=== PATIENT | female | born 1985 | race Caucasian/White ===

== ENCOUNTER 2022-05-08 13:47 | Outpatient (CLI) | payer OTHER, SELFPAY ==
--- NOTE | 2022-05-08 14:00 | CRLHL7_ITS ---
For Patients: As a result of the Century Cures Act, medical imaging exams and procedure reports are released immediately into your electronic medical record. You may view this report before your referring provider. If you have questions, please contact your health care provider. INDICATION: Dating and viability. LMP 03/03/2022. COMPARISON: None. TECHNIQUE: Real-time thakkar-scale imaging of the pelvis was performed. FINDINGS: Sonographic imaging demonstrates a single living intrauterine gestation. The embryo has a regular cardiac rate measuring 169 beats per minute. The embryo`s crown-rump length measurement of 2.9 cm corresponds to a gestational age of 9 weeks 5 days with a sonographic due date of 12/06/2022. There is a normal-appearing yolk sac. The placenta has not yet developed. There is a small subchorionic hemorrhage along the right superior aspect of the gestational sac measuring 1.2 x 0.3 x 1.5 cm. The cervix appears closed. The right ovary measures 4.1 x 1.9 x 2.2 cm and the left ovary measures 2.2 x 1.7 x 1.5 cm. There is a 2.0 cm cyst in the right ovary and a 2.2 cm right paraovarian cyst. Thick-walled cyst in the left ovary likely represents a corpus luteum. Trace amount of free fluid in the right adnexa. IMPRESSION: 1. Single living intrauterine gestation with crown rump length 2.9 cm which corresponds to a gestational age of 9 weeks 5 days with a sonographic due date of 12/06/2022. 2. The clinical gestational age by LMP is 9 weeks 3 days. 3. Small subchorionic hemorrhage. 4. Two simple cysts in the right ovary and a corpus luteum in the left ovary. Trace free fluid in the right adnexa. Dictated by Lolly Franklin MD @ 05/08/2022 6:14:07 PM (Electronically Signed)
[2022-05-08 17:28] LABS: Hepatitis B Surface Antigen* Negative (Negative)
[2022-05-08 17:37] LABS: HIV 1/2/P24 Combo Screen* Negative (Negative)
[2022-05-08 17:45] LABS: Hepatitis C Virus Antibody* Negative (Negative)
[2022-05-10 10:14] LABS: Rapid Plasma Reagin (RPR) Non Reactive (Non Reactive)
[2022-05-10 16:21] LABS: Rubella Antibody IgG 7.2 IU/mL
== END 2022-05-08 13:48 | disposition home or self-care (01) ==
LOC: US 13:50
PROVIDERS: Visit Provider Physician Assistant
DX: Z34.91 Encounter for supervision of normal pregnancy, unspecified, first trimester (principal); O20.9 Hemorrhage in early pregnancy, unspecified; O34.81 Maternal care for other abnormalities of pelvic organs, first trimester; N83.291 Other ovarian cyst, right side; N83.12 Corpus luteum cyst of left ovary; Z3A.09 9 weeks gestation of pregnancy
CPT/HCPCS: 36415; 76817; 86592; 86703; 86762; 86803; 86850; 86900; 86901; 87086; 87340; 87491; 87591

== ENCOUNTER 2022-06-25 14:48 | Emergency (ER) | payer OTHER, SELFPAY ==
[2022-06-25] VITALS (10 sets, daily range): BP systolic 102–132; BP diastolic 46–73; PULSE 60–75; TEMP 36.3; O2SAT 96–100; BMI 30.9
--- OUTSIDE RECORDS SUMMARY | 2022-06-25 17:46 | XMS_ITS | Clinical Summary ---
:1985 Author Organization [facility] [place] [address] Care Team Providers Name Role Phone Pcp, No Primary Care Provider Unavailable Konstantin Barakat MD Unavailable Allergies No known active allergies Medications No known medications Active Problems Problem Noted Date Nonallopathic lesion of sacral region, not elsewhere c lassified 02/28/2013 Hip pain 02/28/2013 Knee pain 02/28/2013 Comments Yes Resolved Problems Problem Noted Date Resolved Date Hip pain 02/28/2013 02/28/2013 Nonallopathic lesion of sacral region, not elsewhere 012 02/28/2013 classified Nonallopathic lesion of thoracic region, not elsewhere 07/1802/28/2013 classified Somatic dysfunction of lumbar region 01/09/201205/2012 Spasm of muscle 01/09/2012 07/18/2012 Knee pain 01/09/2012 07/18/2012 Nonallopathic lesion of cervical region, not elsewhere 10/0301/09/2012 classified Pain in joint, shoulder region 10/03/2010 2 Nonallopathic lesion of lumbar region, not elsewhere 010 01/09/2012 classified Nonallopathic lesion of thoracic region, not elsewhere 02/1301/09/2012 classified Sprain of ribs 02/13/2010 01/09/2012 Knee pain 02/13/2010 01/09/2012 Encounters Date Type Specialty Care Team Description 06/19/2022 Nurse/Clinic Staff Only Immu nization/Injection (ALLERGY INJECT IONS ) 06/19/2022 Travel 05/29/2022 Travel 05/03/2022 Nurse/Clinic Staff Only Immu nization/Injection (ALLERGY SHOTS) 05/03/2022 Travel 04/30/2022 Telemedicine Gabriel Leblanc Allergies CARLA Hearn 04/30/2022 Telephone Gabriel Leblanc Appointment CARLA Hearn 04/30/2022 Travel 04/20/2022 Telephone Gabriel Leblanc Questions (Re : shots) CARLA Hearn from Last 3 Months Social History Tobacco Use Types Packs/Day Years Used Date Never Smoker Smokeless Tobacco: Never Used Alcohol Use Standard Drinks/Week Comments Not Asked 0 (1 standard drink = 0.6 oz pure alcoho l) Comments Yes Sex Assigned at Date Recorded Not on file Travel History Travel Start Travel End [place] 06/04/2022 06/07/2022 COVID-19 Exposure Response Date Recorded In the last 10 days, have you been in contact with No / Unsu re 06/19/2022 4:00 PM CDT someone who was confirmed or suspected to have Coronavirus/COVID-19? 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 Temperature - - Respiratory Rate - - Oxygen Saturation - - Inhaled Oxygen Concentration - - Weight 80.3 kg (177 lb) 02/27/2013 1:44 PM CDT Height 160.7 cm (5' 3.25) 02/27/2013 1:44 PM CDT Body Mass Index 31.11 02/27/2013 1:44 PM CDT Plan of Treatment Upcoming Encounters Date Type Specialty Care Team Description 06/26/2022 Nurse/Clinic Staff Only Health Maintenance Due Date Last Done Comments COVID-19 vaccine series (#1) 1984 Tdap 1995 Depression screening for age 12+ 1996 BMI (ht and wt on same day) for age 18+ 2002 Hepatitis C screening for age 18-79 2002 Tetanus booster 2004 Pap test for age 21-65 2005 Influenza for age 9-49 05/10/2022 Results Not on filefrom Last 3 Months Insurance Payer Benefit Plan / Subscriber ID Effective Dates Phone Addre ss Type Group [facility] [id number] 2022-Present Claudette OLS[address] [id number] [place] [address] Care Teams Sybase Developer Relationship Specialty Start Date End Date Pcp, No PCP - General 01/07/12 . Konstantin Barakat MD Allergy and Immunology 06/20/22 [address] [place] [address]
[2022-06-25 17:48] LABS: Basophils Absolute Auto 0.06 K/uL (0.00-0.30); Basophils Percent Auto 0.6 % (0.0-3.0); Eosinophils Absolute Auto 0.54 K/uL (0.00-0.50); Eosinophils Percent Auto 5.5 % (0.0-7.0); Hematocrit 38.8 % (33.0-51.0); Hemoglobin* 13.9 gm/dL (12.0-16.0); Immature Granulocytes Abs Auto 0.04 K/uL (0.00-0.30); Lymphocytes Absolute Auto 2.65 K/uL (0.90-2.90); Lymphocytes Percent Auto 26.8 % (20-44); Mean Corpuscular HGB Conc 36 gm/dL (32-36); Mean Corpuscular Hemoglobin 32 pg (26-34); Mean Corpuscular Volume 90 fL (80-100); Monocytes Percent Auto 6.9 % (0.0-11.0); Neutrophils Absolute Auto 5.91 K/uL (1.7-7.0); Neutrophils Percent Auto 59.8 % (42.0-72.0); Platelet Count* 207 K/uL (140-440); RDW Coefficient of Variation % 12.5 % (11.5-15.5); Red Blood Count 4.31 m/uL (4.00-5.20); Slide Review Reflex No; White Blood Count* 9.88 K/uL (4.50-11.00)
[2022-06-25 18:07] LABS: Albumin* 4.1 g/dL (3.3-5.0); Chloride* 104 mmol/L (96-114); Sodium* 134 mmol/L (135-149)
[2022-06-25 18:08] LABS: Potassium* 3.6 mmol/L (3.6-5.1)
[2022-06-25 18:11] LABS: Alanine Aminotransferase* 36 U/L (4-35); Alkaline Phosphatase* 50 U/L (40-150); Aspartate Amino Transferase* 30 U/L (12-35); Bilirubin Total* 0.4 mg/dL (0.1-1.5); Blood Urea Nitrogen* 8 mg/dL (5-24); Carbon Dioxide* 23 mmol/L (20-32); Creatinine* 0.6 mg/dL (0.5-1.5); Est. Creatinine Clearance* 109.78; Estimated Glomerular Filt Rate 118 ml/min; Glucose* 80 mg/dL (60-115); Total Protein* 6.7 g/dL (6.0-8.3)
[2022-06-25 18:15] LABS: C Reactive Protein* < 0.5 mg/dL (0.5-1.0)
--- NOTE | 2022-06-25 18:20 | ED_ITS ---
HPI - Skin/Abscess/Foreign Bdy General Date Seen: 06/25/22 Chief complaint: Skin/Abscess/Foreign Body Stated complaint: Bruises down legs 16 weeks Time Seen by Provider: 06/25/22 16:50 Source: patient Mode of arrival: ambulatory Limitations: no limitations History of Present Illness HPI narrative: Patient is a laura 29-year-old female who is a at 16 weeks gestation she noted that she had a rash on her lower extremities and presented here after discussing this with her OBGYN. Is really no other symptoms denies any pain with this rash or any itching associated with it. She denies any leg swelling, her has been uneventful and she has had no vaginal bleeding or anything else. She is taking antihistamine for allergies, along with a vitamin. Denies recent illness, sore throat, cold-like symptoms. The rash is only apparent on her legs. complaint: rash Onset (ago): day(s) Tetanus up to date: yes Location: LLE and RLE Severity: mild Relieving factors: none Exacerbating factors: none Context: none Associated symptoms: denies other symptoms Treatments prior to arrival: none Related Data Home Medications Medication Instructions Recorded Confirmed cetirizine 10 mg capsule (Zyrtec) 10 mg PO QDAY PRN 05/08/22 06/25/22 docosahexaenoic acid 200 mg 200 mg PO DAILY 05/08/22 06/25/22 capsule ( DHA) acetaminophen 500 mg tablet 1,000 mg PO Q6H PRN 05/21/22 06/25/22 (Tylenol Extra Strength) allergy shots subcut .monthly 05/21/22 06/18/22 calcium carbonate 200 mg calcium 200 mg PO BID 06/18/22 06/25/22 (500 mg) chewable tablet (Tums) albuterol 90 mcg/actuation aerosol mcg inhalation 06/25/22 inhaler Previous Rx's Medication Instructions Recorded famotidine 40 mg tablet 40 mg PO BID #180 tabs 06/18/22 Allergies Allergy/AdvReac Type Severity Reaction Status Date / Time codeine Allergy Mild Verified 06/25/22 15:15 Review of Systems Status of ROS: Reports: 10 or more systems reviewed and unremarkable except as noted in History and below 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 No alcohol use. No recreational drug use. Smoking Status: Never smoker Little interest or pleasure in doing things: not at all Feeling down, depressed, or hopeless: not at all Exam Narrative: Exam Narrative: I find a very nice lady with a rash on her lower extremities, it almost looks like it is almost some type of bruising. No tenderness is palpated, it is not red like erythema nodosum, no swelling is noted, she moves her legs have full range of motion, she has normal pulses and normal sensation. There is absolutely no rash on her upper extremities or anything above the level of her upper legs. Const: Vital Signs, click to edit/add: Vital Signs - 24 hr 06/25/22 15:06 06/25/22 17:41 06/25/22 17:42 Temperature 97.4 F L Pulse Rate 66 71 Pulse Rate [Right Pulse Oximeter] 70 Blood Pressure 104/47 L Blood Pressure [Ri ght Upper Arm] 132/73 Pulse Oximetry 99 99 100 Oxygen Delivery Me thod Room Air 06/25/22 18:00 06/25/22 18:02 06/25/22 18:30 Temperature Pulse Rate 64 63 72 Pulse Rate [Right Pulse Oximeter] Blood Pressure 102/48 L Blood Pressure [Ri ght Upper Arm] Pulse Oximetry 99 100 99 Oxygen Delivery Me thod 06/25/22 18:31 06/25/22 18:32 06/25/22 19:00 Temperature Pulse Rate 71 75 60 Pulse Rate [Right Pulse Oximeter] Blood Pressure 104/46 L Blood Pressure [Ri ght Upper Arm] Pulse Oximetry 99 96 100 Oxygen Delivery Me thod Documenting provider has reviewed patient's vital signs: yes HENMT: Common normals: normocephalic, head/scalp atraumatic, hearing grossly normal bilaterally, external ears normal, EAC's normal and TM's normal bilaterally Head and scalp: normocephalic and atraumatic External ear: external ears normal External auditory canal: EAC's normal Tympanic membrane: TM's normal bilaterally Eye: Common normals: PERRL and EOMs intact bilaterally Pupil: PERRL Neck & C-Spine: Common normals: full ROM, no lymphadenopathy, supple, no meningeal signs, no JVD and thyroid normal Thyroid: thyroid normal Lymph: Lymphatic: no lymphadenopathy noted Resp: Common normals: normal respiratory effort, no retractions, no use of accessory muscles, clear to auscultation bilaterally and percussion normal Effort & inspection: able to speak in complete sentences Auscultation: clear to auscultation bilaterally Percussion: percussion normal Cardio: Common normals: no JVD, regular rate, regular rhythm, S1 normal heart sound, S2 normal heart sound, no gallops, no clicks, no murmurs and peripheral pulses 2+ throughout Rate: regular rate Rhythm: regular rhythm Heart sounds: S1 normal and S2 normal Peripheral pulses: pulses 2+ throughout GI: Common normals: Normal to inspection, nondistended, normoactive bowel sounds present, soft to palpation, non-tender, no hepatosplenomegaly, no masses and no bruits Palpation: soft and no hepatosplenomegaly Neuro: Meningeal signs: no meningeal signs Course Course Hospital Course: I discussed the case with who was on-call for OBGYN she also did not know what the cause of this was, but reassured me that she thinks it is benign, and she has seen cases of this which will resolve after . She was really worried we can send her to Dermatology to be seen, continue with the vitamins, and return if worsening signs and symptoms. Vital Signs Vital signs: Initial Vital Signs Temperature 97.4 F L 06/25/22 15:06 Temperature Source Temporal Artery Scan 06/25/22 15:06 Pulse Rate 70 06/25/22 15:06 Blood Pressure 132/73 06/25/22 15:06 Blood Pressure Mean 92 06/25/22 15:06 Blood Pressure Position Sitting 06/25/22 15:06 Pulse Oximetry 99 06/25/22 15:06 Oxygen Delivery Method 06/25/22 15:06 Vital Signs Temperature 97.4 F L 06/25/22 15:06 Pulse Rate 70 06/25/22 15:06 Blood Pressure 132/73 06/25/22 15:06 Pulse Oximetry 99 06/25/22 15:06 Oxygen Delivery Method 06/25/22 15:06 Temperature 97.4 F L 06/25/22 15:06 Pulse Rate 60 06/25/22 19:00 Blood Pressure 104/46 L 06/25/22 18:31 Pulse Oximetry 100 06/25/22 19:00 Oxygen Delivery Method 06/25/22 15:06 MDM - Skin/Abscess/Foreign Bdy MDM Narrative Medical decision making narrative: Differential diagnosis include but are not limited to contact dermatitis, allergic reaction, shingles, impetigo, seborrheic dermatitis, Honorio Michael syndrome, ITP, meningococcus, HSP This is interesting as I initially thought it could be erythema nodosum but with the absence of redness, and pain I think that is less likely. I will do some screening labs and I will discuss this with OBGYN. Medical Records Attestation: I reviewed the patient's medical records. Lab Data Labs: Lab Results 06/25/22 06/25/22 06/25/22 Range/Units 17:29 17:29 17:35 WBC 9.88 (4.50-11.00) K/uL RBC 4.31 (4.00-5.20) m/uL Hgb 13.9 (12.0-16.0) gm/dL Hct 38.8 (33.0-51.0) % MCV 90 (80-100) fL MCH 32 (26-34) pg MCHC 36 (32-36) gm/dL RDW Coeff of Manisha 12.5 (11.5-15.5) % Plt Count 207 (140-440) K/uL Neut % (Auto) 59.8 (42.0-72.0) % Lymph % (Auto) 26.8 (20-44) % Hansford % (Auto) 6.9 (0.0-11.0) % Eos % (Auto) 5.5 (0.0-7.0) % Baso % (Auto) 0.6 (0.0-3.0) % Neut # (Auto) 5.91 (1.7-7.0) K/uL Lymph # (Auto) 2.65 (0.90-2.90) K/uL [place] # (Auto) 0.70 (0.00-0.90) K/UL Eos # (Auto) 0.54 H (0.00-0.50) K/uL Baso # (Auto) 0.06 (0.00-0.30) K/uL Abs Immat Gran (auto) 0.04 (0.00-0.30) K/uL INR (0.91-1.10) APTT (23-33) Seconds Sodium (135-149) mmol/L Potassium (3.6-5.1) mmol/L Chloride (96-114) mmol/L Carbon Dioxide (20-32) mmol/L BUN (5-24) mg/dL Creatinine (0.5-1.5) mg/dL Estimated Creat Clear Estimated GFR ml/min Glucose (60-115) mg/dL Calcium (8.4-10.6) mg/dL Total Bilirubin (0.1-1.5) mg/dL Direct Bilirubin (0.0-0.5) mg/dL AST (12-35) U/L ALT (4-35) U/L Alkaline Phosphatase (40-150) U/L C-Reactive Protein (0.5-1.0) mg/dL Total Protein (6.0-8.3) g/dL Albumin (3.3-5.0) g/dL Urine Color (Yellow) Urine Appearance (Clear) Urine pH (5.0-8.5) Ur Specific Roslyn (1.000-1.030) Urine Protein (Negative) Urine Glucose (UA) (Negative) Urine Ketones (Negative) Urine Blood (Negative) Urine Nitrite (Negative) Urine Bilirubin (Negative) Urine Urobilinogen (0.2-1.0) Ur Leukocyte Esterase (Negative) Urine RBC (0-2) Urine WBC (0-5) Ur Squamous Epith Cells (None-Few) Urine Bacteria (None) SARS-CoV-2 (PCR) Negative SARS-CoV-2 (Negative) Influenza Type A (PCR) Negative PCR FLU A (Negative) Influenza Type B (PCR) Negative PCR FLU B (Negative) RSV (PCR) Negative PCR RSV (Negative) Group A Strep DNA NOT DETECTED (No Detected) 06/25/22 06/25/22 06/25/22 Range/Units 17:35 17:35 18:50 WBC (4.50-11.00) K/uL RBC (4.00-5.20) m/uL Hgb (12.0-16.0) gm/dL Hct (33.0-51.0) % MCV (80-100) fL MCH (26-34) pg MCHC (32-36) gm/dL RDW Coeff of Manisha (11.5-15.5) % Plt Count (140-440) K/uL Neut % (Auto) (42.0-72.0) % Lymph % (Auto) (20-44) % Hansford % (Auto) (0.0-11.0) % Eos % (Auto) (0.0-7.0) % Baso % (Auto) (0.0-3.0) % Neut # (Auto) (1.7-7.0) K/uL Lymph # (Auto) (0.90-2.90) K/uL Hansford # (Auto) (0.00-0.90) K/UL Eos # (Auto) (0.00-0.50) K/uL Baso # (Auto) (0.00-0.30) K/uL Abs Immat Gran (auto) (0.00-0.30) K/uL INR 0.86 L (0.91-1.10) APTT 28 (23-33) Seconds Sodium 134 L (135-149) mmol/L Potassium 3.6 (3.6-5.1) mmol/L Chloride 104 (96-114) mmol/L Carbon Dioxide 23 (20-32) mmol/L BUN 8 (5-24) mg/dL Creatinine 0.6 (0.5-1.5) mg/dL Estimated Creat Clear 109.78 Estimated GFR 118 ml/min Glucose 80 (60-115) mg/dL Calcium 9.0 (8.4-10.6) mg/dL Total Bilirubin 0.4 (0.1-1.5) mg/dL Direct Bilirubin 0.0 (0.0-0.5) mg/dL AST 30 (12-35) U/L ALT 36 H (4-35) U/L Alkaline Phosphatase 50 (40-150) U/L C-Reactive Protein < 0.5 L (0.5-1.0) mg/dL Total Protein 6.7 (6.0-8.3) g/dL Albumin 4.1 (3.3-5.0) g/dL Urine Color Yellow (Yellow) Urine Appearance Clear (Clear) Urine pH 6.0 (5.0-8.5) Ur Specific Roslyn 1.025 (1.000-1.030) Urine Protein Negative (Negative) Urine Glucose (UA) Negative (Negative) Urine Ketones Negative (Negative) Urine Blood Negative (Negative) Urine Nitrite Negative (Negative) Urine Bilirubin Negative (Negative) Urine Urobilinogen 0.2 (0.2-1.0) Ur Leukocyte Esterase Negative (Negative) Urine RBC 2-5 A (0-2) Urine WBC 0-2 (0-5) Ur Squamous Epith Cells Few (None-Few) Urine Bacteria None (None) SARS-CoV-2 (PCR) (Negative) Influenza Type A (PCR) (Negative) Influenza Type B (PCR) (Negative) RSV (PCR) (Negative) Group A Strep DNA (No Detected) Discharge Plan Discharge Clinical Impression: Rash Patient Disposition: Home, Self-Care Condition: Stable Instructions: Acute Rash (ED) Additional Instructions: I wish I knew the answer to this question, it seems to be that it is almost like the bruising is from little fingers hitting you. I discussed the case with your OBGYN and she did not have an answer either she did however reassure me that she has seen this before, and resolves at the end of . I think it would be worried if you develop fevers chills get sick, increasing leg swelling, nausea vomiting or other issues. Then come back and be seen but rate now I would just reassure you that your labs look normal. Prescriptions: No Action allergy shots subcut .monthly acetaminophen [Tylenol Extra Strength] 500 mg tablet 1,000 mg PO Q6H PRN calcium carbonate [Tums] 200 mg calcium (500 mg) tablet,chewable 200 mg PO BID famotidine 40 mg tablet 40 mg PO BID Qty: 180 1RF DHA 200 mg capsule 200 mg PO DAILY Zyrtec 10 mg capsule 10 mg PO QDAY PRN albuterol 90 mcg/actuation aerosol inhalation Follow Up/Referrals: Provider,Not a Local [Primary Care Provider] - Stand Alone Forms: [employer] Info Instructions
[2022-06-25 18:28] LABS: Strep A DNA Probe* NOT DETECTED (No Detected)
[2022-06-25 18:41] LABS: INR 0.86 (0.91-1.10); Prothrombin Time 12.1 Seconds
[2022-06-25 18:42] LABS: PCR FLU A Negative PCR FLU A (Negative); PCR FLU B Negative PCR FLU B (Negative); PCR RSV Negative PCR RSV (Negative)
[2022-06-25 18:42] LABS: Partial Thromboplastin Time* 28 Seconds (23-33)
[2022-06-25 18:44] LABS: SARS PCR* Negative SARS-CoV-2 (Negative)
[2022-06-25 19:10] LABS: Appearance Urine Clear (Clear); Bilirubin Urine Negative (Negative); Blood Urine Negative (Negative); Color Urine Yellow (Yellow); Glucose Urine Negative (Negative); Ketones Urine Negative (Negative); Leukocyte Esterase Urine Negative (Negative); Nitrite Urine Negative (Negative); Protein Urine Negative (Negative); Specific Gravity Urine 1.025 (1.000-1.030); Urobilinogen Urine 0.2 (0.2-1.0)
[2022-06-25 19:30] LABS: Squamous Epithelial Cell Urine Few (None-Few); WBC Urine 0-2 (0-5)
== END 2022-06-25 19:43 | disposition home or self-care (01) ==
PROVIDERS: Emergency Provider Family Medicine
DX: O99.712 Diseases of the skin and subcutaneous tissue complicating pregnancy, second trimester (principal); R21 Rash and other nonspecific skin eruption; Z3A.16 16 weeks gestation of pregnancy; Z20.822 Contact with and (suspected) exposure to COVID-19
CPT/HCPCS: 36415; 80048; 80076; 81001; 85025; 85610; 85730; 86140; 87502; 87634; 87635; 87651; 99283; 99284

== ENCOUNTER 2022-07-25 12:27 | Outpatient (CLI) | payer OTHER, SELFPAY ==
--- OUTSIDE RECORDS SUMMARY | 2022-07-25 12:31 | XMS_ITS | Clinical Summary ---
:1985 Author Organization [facility] [place] [address] Care Team Providers Name Role Phone Pcp, [...] Encounters Date Type Specialty Care Team Description 07/13/2022 Orders Only Scanner <No scans attac hed> 07/13/2022 Orders Only Scanner <No scans attac hed> 07/13/2022 Orders Only Scanner <No scans attac hed> 07/13/2022 Orders Only Scanner <No scans attac hed> 07/12/2022 Nurse/Clinic Staff Only Immu nization/Injection (ALLERGY INJECT IONS ) 07/12/2022 Travel 06/26/2022 Nurse/Clinic Staff Only Immu nization/Injection (ALLERGY INJECT IONS ) 06/26/2022 Travel 06/19/2022 Nurse/Clinic Staff Only Immu nization/Injection (ALLERGY INJECT IONS ) 06/19/2022 Travel 05/29/2022 Travel 05/03/2022 Nurse/Clinic Staff Only Immu nization/Injection (ALLERGY SHOTS) 05/03/2022 Travel 04/30/2022 Telemedicine Gabriel Leblanc Allergies CARLA Hearn 04/30/2022 Telephone Gabriel Leblanc Appointment CARLA Hearn 04/30/2022 Travel from Last 3 Months Social History Tobacco Use Types Packs/Day Years Used Date Never Smoker Smokeless Tobacco: Never Used Alcohol Use Standard Drinks/Week Comments Not Asked 0 (1 standard drink = 0.6 oz pure alcoho l) Comments Yes Sex Assigned at Date Recorded Not on file COVID-19 Exposure Response Date Recorded In the last 10 days, have you been in contact with No / Unsu re 07/12/2022 10:37 AM CDT someone who was confirmed or suspected to have Coronavirus/COVID-19? 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 Temperature - - Respiratory Rate - - Oxygen Saturation - - Inhaled Oxygen Concentration - - Weight 80.3 kg (177 lb) 02/27/2013 1:44 PM CDT Height 160.7 cm (5' 3.25) 02/27/2013 1:44 PM CDT Body Mass Index 31.11 02/27/2013 1:44 PM CDT Plan of Treatment Upcoming Encounters Date Type Specialty Care Team Description 08/01/2022 Nurse/Clinic Staff Only Health Maintenance Due Date Last Done Comments COVID-19 vaccine series (#1) 1984 Tdap 1995 Depression screening for age 12+ 1996 HIV for age 15-65 1999 BMI (ht and wt on same day) for age 18+ 2002 Hepatitis C screening for age 18-79 2002 Tetanus booster 2004 Pap test for age 21-65 2005 Influenza for age 9-49 05/10/2022 Procedures Procedure Name Priority Date/Time Associated Diagnosis Comme nts SCAN 07/13/2022 12:00 AM Results for this CORRESP-IMAGING CDT procedure ar e in the results section. SCAN 07/13/2022 12:00 AM Results for this CORRESP-DIAGNOSTICS CDT procedur e are in the results section. SCAN 07/13/2022 12:00 AM Results for this CORRESP-DIAGNOSTICS CDT procedur e are in the results section. SCAN 07/13/2022 12:00 AM Results for this CORRESP-DIAGNOSTICS CDT procedur e are in the results section. from Last 3 Months Results SCAN [facility]RESP[facility]DIAGNOSTICS (07/13/2022 12:00 AM CDT) Narrative This result has an attachment that is no t available. Scanner OTHER SCAN [facility]DIAGNOSTICS (07/13/2022 12:00 AM CDT) Narrative This result has an attachment that is no t available. Scanner OTHER SCAN [facility]DIAGNOSTICS (07/13/2022 12:00 AM CDT) Narrative This result has an attachment that is no t available. Scanner OTHER SCAN CORRESP-IMAGING (07/13/2022 12:00 AM CDT) Narrative This result has an attachment that is no t available. Scanner OTHER from Last 3 Months Insurance Payer Benefit Plan / Subscriber ID Effective Dates Phone Addre ss Type Group [facility] [id number] 2022-Present [address] [address] [place] [address] Guarantor Name Account Type Relation to Date of Phone Bill ing Patient Address [place] BENNETT Personal/Family Self 1985 [address] [place] [address] Care Teams Multimedia Technician Relationship Specialty Start Date End Date Pcp, No PCP - General 01/07/12 . Konstantin Barakat MD Allergy and Immunology 06/20/[address] [place] [address]
== END 2022-07-25 12:28 | disposition home or self-care (01) ==
LOC: US 12:29
PROVIDERS: Visit Provider Pediatrics Neonatal-Perinatal Medicine
DX: O09.522 Supervision of elderly multigravida, second trimester (principal); Z3A.20 20 weeks gestation of pregnancy
CPT/HCPCS: 76811

== ENCOUNTER 2022-11-09 11:33 | Outpatient (CLI) | payer OTHER, SELFPAY ==
[2022-11-09 15:47] LABS: Basophils Absolute Auto 0.06 K/uL (0.00-0.30); Basophils Percent Auto 0.8 % (0.0-3.0); Eosinophils Absolute Auto 0.46 K/uL (0.00-0.50); Eosinophils Percent Auto 5.9 % (0.0-7.0); Hematocrit 45.5 % (33.0-51.0); Hemoglobin* 15.2 gm/dL (12.0-16.0); Immature Granulocytes Abs Auto 0.01 K/uL (0.00-0.30); Immature Granulocytes Pct Auto 0.1 %; Lymphocytes Absolute Auto 2.75 K/uL (0.90-2.90); Lymphocytes Percent Auto 35.5 % (20-44); Mean Corpuscular HGB Conc 33 gm/dL (32-36); Mean Corpuscular Hemoglobin 31 pg (26-34); Mean Corpuscular Volume 93 fL (80-100); Neutrophils Absolute Auto 3.85 K/uL (1.7-7.0); Neutrophils Percent Auto 49.7 % (42.0-72.0); Platelet Count* 215 K/uL (140-440); RDW Coefficient of Variation % 12.1 % (11.5-15.5); Red Blood Count 4.88 m/uL (4.00-5.20); White Blood Count* 7.75 K/uL (4.50-11.00)
[2022-11-09 15:56] LABS: Slide Review Reflex No
== END 2022-11-09 11:34 | disposition home or self-care (01) ==
PROVIDERS: Visit Provider Nurse Practitioner Family
DX: J02.9 Acute pharyngitis, unspecified (principal)
CPT/HCPCS: 85025; 87070

== ENCOUNTER 2022-12-18 11:25 | Outpatient (CLI) | payer OTHER, SELFPAY | END 2022-12-18 11:26 | disposition home or self-care (01) | PROVIDERS: Visit Provider Obstetrics & Gynecology | DX: N93.9 Abnormal uterine and vaginal bleeding, unspecified (principal); N97.0 Female infertility associated with anovulation | CPT/HCPCS: 80053; 80061; 83498; 83520; 84146; 84270; 84402; 84403; 84443 ==

== ENCOUNTER 2023-01-25 09:15 | Outpatient (RCR) | payer OTHER, SELFPAY | END 2023-05-07 15:30 | disposition home or self-care (01) | PROVIDERS: Visit Provider Obstetrics & Gynecology | DX: M25.552 Pain in left hip (principal); M25.551 Pain in right hip; G89.29 Other chronic pain; M62.9 Disorder of muscle, unspecified; Z74.09 Other reduced mobility; M62.81 Muscle weakness (generalized); Z51.89 Encounter for other specified aftercare | CPT/HCPCS: 97110; 97112; 97140; 97161 ==

== ENCOUNTER 2023-02-16 08:49 | Outpatient (CLI) | payer OTHER, SELFPAY ==
[2023-02-17 11:07] LABS: Follicle Stimulating Hormone 24.7 IU/L
[2023-02-19 10:58] LABS: Anti-Mullerian Hormone 0.357 ng/mL (0.176-11.705)
[2023-02-19 15:01] LABS: Estradiol Premenol Female 21 pg/mL
== END 2023-02-16 08:50 | disposition home or self-care (01) ==
LOC: LAB 08:52
DX: Z31.89 Encounter for other procreative management (principal)
CPT/HCPCS: 36415; 82670; 83001; 83520

== ENCOUNTER 2024-01-09 09:51 | Outpatient (CLI) | payer OTHER, SELFPAY ==
--- OUTSIDE RECORDS SUMMARY | 2024-01-09 09:54 | XMS_ITS | Clinical Summary ---
Author Name Unknown Organization [facility] Address [address] [place] [address] Care Team Providers Care Electric Sign Assembler Name Role Phone Unavailable Primary Care Provider Unavailabl e Source Comments Patient records contain information from all sites at [facility]. For routine questions regarding patient records, call [phone] during business hours, M-F 8:00 AM - 5:00 PM Central Time. Record requests for emergency care only can be directed to [phone] at any time.[facility] Allergies Active Allergy Reactions Criticality Noted Date Comments Cat Hair Standardized Allergenic Extract Edema (Reselect Reaction) 11/18/2003 Clarithromycin GI intolerance 04/13/2005 Codeine Nausea And Vomiting Low 07/26/2022 Moxifloxacin GI intolerance 04/13/2005 Pollen Extracts Edema (Reselect Reaction) 01/05/2009 Pt. Has a host of other environmental allergies. Medications Medication Sig Dispensed Refills Start Date End Date Status levalbuterol (XOPENEX) 0.31 mg/3 mL nebulizer solution Inhale. Active methylPREDNISolone (MEDROL DOSEPACK) 4 mg tablet Take by mouth as directed. per package instructions 0 06/05/2019 Active mupirocin (BACTROBAN) 2 % nasal ointment Apply 1 application to each nostril as needed. Use one-half of tube in each nostril twice daily for five (5) days. After application, press sides of nose together and gently massage. Active bacitracin-neomycin -polymyxin-hydrocor tisone (CORTISPORIN) 1 % ointment Apply 1 application topically 2 (two) times a day. Active acetaminophen (TYLENOL) 500 mg tablet Take 1,000 mg by mouth every 6 (six) hours as needed. 08/04/2022 Active cetirizine (ZyrTEC) 10 mg capsule Take 10 mg by mouth. A ctive sertraline (ZOLOFT) 50 mg tablet 11/09/2022 Active zolpidem (AMBIEN) 5 mg tablet as needed. 09/18/2022 Active levalbuterol (XOPENEX HFA) 45 mcg/actuation inhaler Inhale 1 puff as needed for wheezing. Active Active Problems Problem Noted Date Diagnosed Date Beat Premature Ventricular 11/24/2022 Immunizations Name Administration Dates Next Due influenza vaccine quad (FLUZ ONE/FLUARIX) (6 months and older)(PF) 06/30/2019 Family History Medical History Relation Name Comments Depression Father Jesus Rivas Sleep apnea Father Jesus Rivas Coronary artery disease Maternal Grandfather Jamal b[address]i st Heart attack @40, Bypass @ 70 Hyperlipidemia Maternal Grandfather Jamal oralia Hypertension Maternal Grandfather [place] oralia Stroke Maternal Grandfather [place] oralia Osteoporosis Maternal Grandmother Lexi Oralia Hyperlipidemia Mother Dina Rivas Mild block age on carotid artery scan Migraines Mother Dina Rivas Osteoporosis Mother Dina Rivas Rheum arthritis Mother Dina Rivas Skin cancer Mother Dinasamantha Rivas Obesity Paternal Grandmother Shea Rivas Skin cancer Paternal Grandmother Shea Brejohn Stroke Paternal Grandmother Shea Rob Relation Name Status Comments Father Jesus Rivas Maternal Grandfather Jamal oralia Maternal Grandmother Lexi Oralia Mother Dina Rivas Paternal Grandmother Shea Rivsa Social History Tobacco Use Types Packs/Day Years Used Date Smoking Tobacco: Never Smokeless Tobacco: Never Tobacco Cessation:Counseling Given: Not Answered Alcohol Use Standard Drinks/Week Comments Yes 3 (1 standard drink = 0.6 oz pur e alcohol) Humiliation, Afraid, Rape, and Kick questionnair e Answer Date Recorded Within the last year, have y ou been afraid of your partner or ex-partner? No 11/19/2022 Within the last year, have y ou been humiliated or emotionally abused in other ways by your partner or ex-partner? No Within the last year, have y ou been kicked, hit, slapped, or otherwise physically hurt by your partner or ex-partner? No 11/19/2022 Within the last year, have y ou been raped or forced to have any kind of sexual activity by your partner or ex-partner? No 11/19/2022 Social Connection and Isolat ion Panel [NHANES] Answer Date Recorded In a typical week, how many times do you talk on the phone with family, friends, or neighbors? Twice a week 11/19/2022 How often do you get togethe r with friends or relatives? Once a week 11/19/2022 How often do you attend chur or evangelical services? More than 4 times per year 11/19/2022 Do you belong to any clubs o r organizations such as alevism groups, unions, fraternal or athletic groups, or school groups? Yes 11/19/2022 How often do you attend meet ings of the clubs or organizations you belong to? More than 4 times per year 11/19/2022 Are you , , di vorced, , never , or living with a partner? 11/19/2022 AUDIT-C Answer Date Recorded Q1: How often do you have a drink containing alcohol? 4 or more times a week 11/19/2022 Q2: How many drinks containi ng alcohol do you have on a typical day when you are drinking? 1 or 2 3 Q3: How often do you have si x or more drinks on one occasion? Never 11/19/2022 Overall Financial Resource Strain (CARDIA) Answe r Date Recorded How hard is it for you to pa y for the very basics like food, housing, medical care, and heating? Not hard at all 11/19/2022 PHQ-2 Answer Date Recorded PHQ-2 Score 1 01/16/2023 [facility] [place] [facility] Occupat ional Health - Occupational Stress Questionnaire Answer Date Recorded Do you feel stress - tense, restless, nervous, or anxious, or unable to sleep at night because your mind is troubled all the time - these days? To some extent 11/19/2022 Exercise Vital Sign Answer Date Recorde d On average, how many days pe r week do you engage in moderate to strenuous exercise (like a brisk walk)? 4 days 11/19/2022 On average, how many minutes do you engage in exercise at this level? 30 min 11/19/2022 Hunger Vital Sign Answer Date Recorded Within the past 12 months, y ou worried that your food would run out before you got the money to buy more. Never true 11/20/19 Within the past 12 months, t he food you bought just didn't last and you didn't have money to get more. Never true 11/19/2022 PRAPARE - Transportation Answer Date Re corded In the past 12 months, has l ack of transportation kept you from medical appointments or from getting medications? No 11/07 In the past 12 months, has l ack of transportation kept you from meetings, work, or from getting things needed for daily living? No 11/19/2022 Housing Stability Vital Sign Answer Dennys e Recorded In the last 12 months, was t here a time when you were not able to pay the mortgage or rent on time? No 11/19/2022 In the last 12 months, how many places have you lived? 3 11/19/2022 In the last 12 months, was t here a time when you did not have a steady place to sleep or slept in a nursing home (including now)? No 11/19/2022 Depression Answer Date Recor ded PHQ-9 Total Score (max 27) 1 01/16 Nutrition Answer Date Recorded Nutrition: EVOO Fat Source No 11/19 On average, how many serving s of fruits and vegetables do you eat per day (serving size is equal to 1 cup or approximately the size of a tennis ball)? 4-5 11/19/2022 Dental Answer Date Recorded Dental: Regular Dentist Yes 11/20/19 Employment Answer Date Recorded Employment status Employed and actively working without restrictions 11/19/2022 Education Answer Date Recorded What is the highest level of school you have completed or the highest degree you have received? Bachelor's degree (e.g., BA, AB, BS) 06/29/2019 Sex and Gender Information Value Date Recorded Sex Assigned at Female 06/30/2019 10:21 AM CDT Gender Identity Female 06/30/2019 10:21 AM CDT Sexual Orientation Straight 06/30/2019 10 :21 AM CDT Last Filed Vital Signs Vital Sign Reading Time Taken Comments Blood Pressure 97/58 06/30/2019 9:39 AM CDT Pulse 53 06/30/2019 9:39 AM CDT Temperature 36.6 ??C (97.9 ??F) 06/30/2019 8:49 AM CD T Respiratory Rate 16 06/30/2019 9:39 AM CDT Oxygen Saturation 99% 06/30/2019 9:39 AM CDT Inhaled Oxygen Concentration - - Weight 74.8 kg (165 lb) 06/30/2019 7:38 AM CDT Height 162.6 cm (5' 4) 06/30/2019 7:38 AM CDT Body Mass Index 28.32 06/30/2019 7:38 AM CDT Plan of Treatment Health Maintenance Due Date Last Done Comments Cervical Cancer Screening 1984 HIV Screening 1984 Hepatitis C Screening 1984 Lipid (Cholesterol) Screening 1984 Hepatitis B Vaccines (1 of 3 - 19+ 3-dose series) 2003 COVID-19 Vaccine ( - 2022- season) 2023 Influenza Vaccine (#1) 2023 , 06/30/2019, 06/05/2016, Additional history exists Depression Screening (Annual PHQ-2) 09/09/2023 DTaP,Tdap,and Td Vaccines (2 - Td or Tdap) 07/02/2026 07/02/2016 Colonoscopy Discontinued 06/30/2019, 06/10, 08/12/2015, Additional history exists Colorectal Cancer Surveillance Discontinued Pneumococcal vaccine (0-64 years) Aged Out 07/02/2023 No longer eligible based on patient's age to complete this topic CT Colonography Discontinued Cologuard Discontinued HPV Vaccines Aged Out No longer eligi ble based on patient's age to complete this topic Medical Devices Implanted Type Area Top Polisher Device Identifier Shelf Expiration Date Model / Serial / Lot Seprafilm 3x 5 (Procedure Pack) - Shin [id number] Implanted:Qty: 1 on 09/13/2004 Mesh or Patch [place] Description:Device Manufactu rer - Rev Nat.. Device Status Text - [id number]. Procedures Procedure Name Priority Date/Time Associated Diagnosis Comments COLONOSCOPY Routine 06/30/2019 8:14 AM CDT Diarrhea Persistent Unexplained from Last 3 Months or Most Recently Relevant to Health Maintenance
--- OUTSIDE RECORDS SUMMARY | 2024-01-09 09:54 | XMS_ITS | Clinical Summary ---
Author Name Unknown Organization [facility] Address [place], [place] [address] Care Team Providers Care Stone Carver Name Role Phone Pcp, No Primary Care Provider Unavailabl e Konstantin Barakat MD Unavailable Honorio Gomez MD Unavailable [phone] Allergies Active Allergy Reactions Criticality Noted Date Comments Codeine Nausea And Vomiting 07/26/2022 Medications Medication Sig Dispensed Refills Start Date End Date Status levalbuterol (XOPENEX) 0.31 mg/3 mL nebulization Inhale by mouth. Active Cetirizine (ZyrTEC) 10 mg cap Take 10 mg by mouth. Active acetaminophen (TYLENOL EXTRA STRGTH) 500 mg tabletIndications: (spontaneous vaginal delivery) Take 2 Tablets (1,000 mg) by mouth every 6 hours if needed for Pain. Max acetaminophen dose: 4000mg in 24 hrs. 30 Tablet 08/04/2022 Active ibuprofen (ADVIL; MOTRIN) 600 mg tabletIndications: (spontaneous vaginal delivery) Take 1 Tablet (600 mg) by mouth every 6 hours if needed for Pain. Maximum of 3200 mg in 24 hours. 30 Tablet 08/04/2022 Active lactobacillus rhamnosus, GG, (Culturelle) 10 billion cell capsuleIndications :Chronic sinusitis, unspecified location Take 1 Capsule by mouth once daily. 30 Capsule 04/17/2023 Active albuterol HFA (PRO-AIR; VENTOLIN; PROVENTIL) 90 mcg/actuation inhalerIndications :Cough, unspecified type Inhale 2 Puffs by mouth 4 times daily if needed for Wheezing. 1 Each 1 05/27/2023 Active azelastine 137 mcg/actuation (ASTELIN) nasal sprayIndications:C hronic sinusitis, unspecified location Inhale 2 Sprays into affected nostril(s) two times daily. 30 mL 11 07/29/2023 Active budesonide (PULMICORT RESPULES) 0.5 mg/2 mL neb suspensionIndicati ons:Chronic sinusitis, unspecified location,Cough, unspecified type Inhale 2 mL (0.5 mg) via a nebulizer two times daily. 120 mL 1 10/28/2023 Active Active Problems Problem Noted Date Diagnosed Date [facility] Encounter for preconception consultation 02/2023 Overview: [facility] PRECONCEPTION CONSULTATION ON 11/15/22 REASON FOR CONSULT: AMA, history of child with Congenital Heart defect TODAY'S APPOINTMENT: MD Consultation PRIMARY DIAGNOSIS: 37 y.o. 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 Hx vasovagal syncope REFERRING PHYSICIAN/PHONE/LAST UPDATE: Olman Das OB,[facility], Primary MD approves scheduling of recommended ultrasounds/testing: Yes SPECIALISTS/CONSULTS: Include: Specialty MD Clinic Name Phone# [facility] and ADDED TO PATIENT CARE TEAM Yes GENETICS: 08/04/23 GC with CM with previous PROCEDURES: PERTINENT LABS: PERTINENT MEDS: Lorazepam, Sertraline Emile E[facility] PLAN OF CARE: cardiac anomaly, delivered, current hospit alization 08/04/2022 Asthma affecting in third trimester complicated by congenital heart disease 07/26/2022 Nonallopathic lesion of sacr al region, not elsewhere classified 02/28/2013 Hip pain 02/28/2013 Knee pain 02/28/2013 High risk , antepartum Resolved Problems Problem Noted Date Diagnosed Date Resolved Date [facility] Supervision of high-risk 07/26/2022 11/13/2022 Overview: [facility] CONSULTATION ON 07/26/22 REASON FOR CONSULT: U/S CHD TODAY'S APPOINTMENT: MD Consultation & ultrasound exam PRIMARY DIAGNOSIS: 37 y.o. Estimated Date of Delivery: 12/08/22 : CHD-?HRHD Maternal: AMA Vasovagal syncope Asymptomatic PVC's (hasn't set up care with cardiology yet, but plans to) LAST GROWTH: 07/26/22 20w5d 07/25/22 20w4d EFW 424 grams; Percentile: 88 05/08/22 dating u/s REFERRING PHYSICIAN/PHONE/LAST UPDATE: [facility] [phone] Primary MD approves scheduling of recommended ultrasounds/testing: Not specified SPECIALISTS/CONSULTS: Include: Specialty MD Clinic Name Phone# [facility] and ADDED TO PATIENT CARE TEAM Yes CARE COORDINATION: Josiane Ervin, LUIS ANTONIO/Peggy Preciado, RN/Beverly aJckson RN/Mee Ortiz RN/Courtney Taveras, RN [phone] GENETICS: Low rsik PROCEDURES: PERTINENT LABS: Labs reviewed? Yes Normal? Yes PERTINENT MEDS: Preferred delivery location: MD PLAN OF CARE: CHECKLIST FOR SCHEDULING PROCEDURES: For [facility]: Induction - Call (elevator examiner). (UTD patients only, will need to call in the morning before induction, see AVS) Procedure: Induction Hospital: [facility] Unit: L&D Date & Time of procedure: 08/03/22. The patient will call at 0730 and either cancel the IOL or determine what time she will come in. She is thinking sometime in the afternoon if she proceeds with IOL. Rosas Score if induction: N/A Pertinent information: Please know this family is facing an impossible decision to possibly end a wanted . She has been referred to local Mental Health support by her primary OB and is contact with the Social Work team. Eugene is currently not interested in a D&E if it can be avoided and does not wish to go to [facility] or [facility]. Please see additional notes in her chart for more information. Gestational age on procedure date? 21w6d MD doing procedure: Dr. Pittman, Dr. Beavers, Dr. Courteny. Dr. Carnes, Dr. Whitehead, and Corina Dobson APRN are mason apprentice for [facility]. Date scheduled: 08/01/2022 when patient was 21w4d. Scheduling MD & RN: Dr. Crowell/Lashaun Taveras RN ?? Notifications: Hospitalist Delivery-[facility] mason apprentice for this induction (for 3 day window) notified via [email or web address] inbox? Yes [facility] MD and PATTERN MAKER mason apprentice for this induction (for 3 day window) notified via [email or web address] inbox? Yes Primary MD notified via [email or web address] inbox? Not Applicable Primary MD clinic called if not [facility]? Yes On [facility] calendar? Yes Genetic Counselor notified via [email or web address] Inbox- [facility] Genetic Counselor Pool? Yes ?? H&P: H&P and Plan in chart? To be entered upon admission due to patient preference and time constraints. ? Patient notification: Patient notified of procedure date? Yes Written admission instructions given to patient via AVS? Yes ? An e-mail detailing induction (using .[email or web address]) sent to patient per her request along with a map/directions.??Patient is aware this is not a secure e-mail with appointment information only. Encouraged patient to call with questions or concerns. ?? The patient has been emailed a care plan to fill out if desired. Delivery notification sent to [facility] delivery team; Dr. Crowell; Dr. Marvin; Dr. Fine; Corina Beyer APRN. ? Referring clinic updated on plan by Lashaun Taveras RN. ?? Patient added to Care Coordination List: Yes ?? Patient added to Acuity List in [facility]. ?? Patient added to Tracking Requests for IOP Spreadsheet in S-Drive: (S:\[email or web address]\[email or web address]\[email or web address]) Hip pain 02/28/2013 02/28/2013 Nonallopathic lesion of sacr al region, not elsewhere classified 07/18/2012 02/28/2013 Nonallopathic lesion of thor acic region, not elsewhere classified 07/18/2012 02/28/2013 Somatic dysfunction of lumbar region 01/09/2012 07/18/2012 Spasm of muscle 01/09/2012 07/18/2012 Knee pain 01/09/2012 07/18/2012 Nonallopathic lesion of cerv ical region, not elsewhere classified 10/03/2010 01/09/2012 Pain in joint, shoulder region 10/03/2010 01/09/2012 Nonallopathic lesion of lumb ar region, not elsewhere classified 03/23/2010 01/09/2012 Nonallopathic lesion of thor acic region, not elsewhere classified 02/13/2010 01/09/2012 Sprain of ribs 02/13/2010 01/09/2012 Knee pain 02/13/2010 01/09/2012 Encounters Date Type Department Care Team Description 12/19/2023 10:30 AM CDT Nurse/Clinic Staff Only [facility] [address] [place] [address] Immunization/Injecti on (ALLERGY INJECTIONS ) 12/19/2023 Travel 11/21/2023 1:45 PM CDT Nurse/Clinic Staff Only [facility] [address] [place] [address] Immunization/Injecti on (ALLERGY INJECTIONS ) 11/21/2023 Travel 10/28/2023 2:15 PM DIRECTOR PHARMACOVIGILANCE Office Visit [facility] [address] [place] [id number] Gabriel Leblanc MBBS Allergies (Office visit. ) 10/28/2023 Travel 10/22/2023 Telephone [facility] [address] [place] [address] Gabriel Leblanc MBBS 10/21/2023 8:30 AM DIRECTOR PHARMACOVIGILANCE Nurse/Clinic Staff Only [facility] [address] [place] [address] Immunization/Injecti on (ALLERGY INJECTIONS ) 10/21/2023 Travel 10/18/2023 Medical Messaging [facility] [address] [place] [address] Gabriel Leblanc MBBS Additional referral for sinus consult from Last 3 Months Immunizations Name Administration Dates Next Due Pneumococcal Conj 20-valent (Prevnar 20) 023 Family History Medical History Relation Name Comments Hyperlipidemia Father Hypertension Maternal Grandfather Hyperlipidemia Maternal Grandmother Hypertension Maternal Grandmother Osteoporosis Maternal Grandmother Hyperlipidemia Mother Relation Name Status Comments Father Maternal Grandfather Maternal Grandmother Mother Social History Tobacco Use Types Packs/Day Years Used Date Smoking Tobacco: Never Passive Smoke Exposure: Never Smokeless Tobacco: Never Tobacco Cessation:Counseling Given: Not Answered Alcohol Use Standard Drinks/Week Comments Yes 0 (1 standard drink = 0.6 oz pur e alcohol) Occ Social Connections Answer Date Recorded Frequency of Communication with Friends and Fami ly Not on file 04/30/2022 Sex and Gender Information Value Date Recorded Sex Assigned at Not on file Gender Identity Not on file Sexual Orientation Not on file Obstetrics History Para Term AB IAB SAB Ectopic Multiple Livin g Live Births 3 3 2 1 2 2 Date Outcome GA Total Labor Labor/2nd/3rd Weight Sex Delivery Anes PTL Lupe A1 A5 Name Cl in 09/16 Term 41w 0d M Vag Samia ng Dilli on Complications: Hem orrhage Comments:PP hemmorhage 12/16 Term 40w 0d 3h 54m 2h 25m/1h 25m/0h 04m 3.74 kg (8 lb 3.8 oz) M Vag-Spont Epidu ral N Samia ng 8 9 SABRINA ,B1 CLARIBEL A A Sabrina Osbor n DO Complications:None [facility] 08/04 22w 0d F Vag Feta l Krista se 0 0 Kaela Complications:Stillbirth Delivery Location:[facility] Last Filed Vital Signs Vital Sign Reading Time Taken Comments Blood Pressure 104/69 10/28/2023 2:32 PM DIRECTOR PHARMACOVIGILANCE Pulse 63 10/28/2023 2:32 PM DIRECTOR PHARMACOVIGILANCE Temperature 36.6 ??C (97.9 ??F) 08/05/2022 4:11 AM CS T Respiratory Rate 14 07/18/2023 3:51 PM DIRECTOR PHARMACOVIGILANCE Oxygen Saturation 100% 10/28/2023 2:32 PM DIRECTOR PHARMACOVIGILANCE Inhaled Oxygen Concentration - - Weight 82.6 kg (182 lb) 08/04/2022 2:45 AM DIRECTOR PHARMACOVIGILANCE Height 162.6 cm (5' 4) 08/04/2022 2:45 AM DIRECTOR PHARMACOVIGILANCE Body Mass Index 31.24 08/04/2022 2:45 AM DIRECTOR PHARMACOVIGILANCE Plan of Treatment Upcoming Encounters Date Type Department Care Team (Late st Contact Info) Description 01/13/2024 1:30 PM CDT Nurse/Clinic Staff Only [facility] [address] [facility] [place] [place] [address] Health Maintenance Due Date Last Done Comments Tdap 1995 Depression screening for age 12+ 1996 HIV for age 15-65 1999 BMI (ht and wt on same day) for age 18+ 2002 Hepatitis C screening for ag e 18-79 2002 Tetanus booster 2004 Pap test for age 21-65 2005 COVID-19 vaccine series (2022- season) 2023 Influenza for age 9-49 05/10/2024 Pneumococcal series for age 6-64 Aged Out 07/02/20 23 No longer eligible based on patient's age to complete this topic Procedures Procedure Name Priority Date/Time Associated Diagnosis Comments NV PERCUTANEOUS TESTS W/ALLERGENIC EXTRACTS Routine 10/28/2023 12:00 AM DIRECTOR PHARMACOVIGILANCE Chronic sinusitis, unspecified location Cough, unspecified type from Last 3 Months Results * NV PERCUTANEOUS TESTS W/ALLERGENIC EXTRACTS (10/28/2023 12:00 AM DIRECTOR PHARMACOVIGILANCE) Gabriel AGUIRRE [facility] - ALLERG Y AND IMMUNOLOGY SERVICES from Last 3 Months Advance Directives * Full Code (Latest Code Status on File) Date Activated Date Inactivated Comments 08/03/2022 5:56 PM 08/05/2022 12:19 PM Question Answer Comments Code Status Discussion: Reviewed Preferences Care Teams Stone Carver Relationship Specialty Start Date End Date Pcp, No . PCP - General 01/07/12 Konstantin Barakat MD [address] [place] [address] Allergy and Immunology 06/20/22 Honorio Gomez MD [address] [place] [address] Referring Provider Obstetrics and Gynecology 07/26/22
--- OUTSIDE RECORDS SUMMARY | 2024-01-09 09:54 | XMS_ITS ---
Author Name Unknown Organization [facility] Address [address] [place] [address] Care Team Providers Care Loan Adviser Name Role Phone Unavailable Unavailable Unavailable Surgery Details Not on file Complications Check Surgery Details section. Procedure Estimated Blood Loss Check Surgery Details section. Procedure Findings Check Surgery Details section. Procedure Specimens Taken Check Surgery Details section.
--- OUTSIDE RECORDS SUMMARY | 2024-01-09 09:54 | XMS_ITS | Referral Summary ---
Author Name Unknown Organization [facility] Address [address] [place] [address] Care Team Providers Care De Icer Installer Name Role Phone Unavailable Primary Care Provider Unavailabl e Source Comments Patient records contain information from all sites at [facility]. For routine questions regarding patient records, call [phone] during business hours, M-F 8:00 AM - 5:00 PM Central Time. Record requests for emergency care only can be directed to [phone] at any time.[facility] Allergies Active Allergy Reactions Criticality Noted [...] (FLUZ ONE/FLUARIX) (6 months and older)(PF) 06/30/2019 Social History Tobacco Use Types Packs/Day Years [...] How often do you attend chur or mandaen services? More than 4 times per year 11/19/2022 Do you belong to any clubs o r organizations such as religious groups, unions, fraternal or athletic groups, or [...] when you are drinking? 1 or 2 Q3: How often do you have si x or more drinks on one occasion? Never 11/19/2022 Overall Financial Resource Strain (CARDIA) Answe r Date Recorded How hard is it for you to pa y for the very basics like food, housing, medical care, and heating? Not hard at all 11/19/2022 PHQ-2 Answer Date Recorded PHQ-2 Score 1 01/16/2023 [facility] Occupat ional [facility] - Occupational Stress [...] money to buy more. Never true 11/20/19 23 Within the past 12 months, t he [...] place to sleep or slept in a fpc (including now)? No 11/19/2022 Depression Answer Date [...] 06/30/2019 7:38 AM CDT Plan of Treatment Not on file Medical Devices Implanted Type Area Jack Prizer Device Identifier Shelf Expiration Date Model / Serial / Lot Seprafilm 3x 5 (Procedure Pack) - [id number] Implanted:Qty: 1 on 09/13/2004 Mesh or Patch [employer] Description:Device Manufactu rer - [employer] Device Status Text - [id number]. Procedures Procedure Name Priority Date/Time Associated Diagnosis Comments COLONOSCOPY Routine 06/30/2019 8:14 AM CDT Diarrhea Persistent Unexplained from Last 3 Months or Most Recently Relevant [place] [address]
== END 2024-01-09 09:52 | disposition home or self-care (01) ==
PROVIDERS: PCP Obstetrics & Gynecology; Visit Provider Obstetrics & Gynecology
DX: R61 Generalized hyperhidrosis (principal); Z13.21 Encounter for screening for nutritional disorder; Z13.29 Encounter for screening for other suspected endocrine disorder
CPT/HCPCS: 82306; 84443

== ENCOUNTER 2024-03-31 17:11 | Outpatient (CLI) | payer OTHER, SELFPAY ==
--- OUTSIDE RECORDS SUMMARY | 2024-03-31 17:13 | XMS_ITS | Clinical Summary ---
Author Organization [facility] Address [address] [place] [address] Care Team Providers Care Conveyancer Name Role Phone Unavailable Primary Care Provider Unavailabl e Source Comments Patient records contain information from all sites at [facility]. For routine questions regarding patient records, call [phone] during business hours, M-F 8:00 AM - 5:00 PM Central Time. Record requests for emergency care only can be directed to [phone] at any time.[facility] Allergies Active Allergy Reactions Criticality Noted Date [...] Date Diagnosed Date Beat Premature Ventricular 11/24/2022 Encounters Date Type Department Care Team Description 03/26/2024 Orders Only Department of Obstetrics and Gynecology in [place], [place] [address] [place] [address] Ivon Barbosa R.N. Perimenopause (Primary Dx) 03/25/2024 Clinical Communication Department of Obstetrics and Gynecology in [place], [place] [address] [place] [address] July Baires P.A.-C. Communication from Last 3 Months Immunizations Name Administration Dates Next Due influenza vaccine quad (FLUZ ONE/FLUARIX) (6 months and older)(PF) 06/30/2019 Family History Medical History Relation Name Comments Depression Father Jesus Rivas Sleep apnea Father Jesus Rivas Coronary artery disease Maternal Grandfather Jamal vides st Heart attack @40, Bypass @ 70 Hyperlipidemia Maternal Grandfather Jamal nicole Hypertension Maternal Grandfather Jamal nicole Stroke Maternal Grandfather Jamal nicole Osteoporosis Maternal Grandmother Lexi Nicole Hyperlipidemia Mother Dina Rivas Mild block age on carotid artery scan Migraines Mother Dinasamantha Rivas Osteoporosis Mother Dina Rivas Rheum arthritis Mother Dina Rivas Skin cancer Mother Dina Rivas Obesity Paternal Grandmother Shea Rob Skin cancer Paternal Grandmother Shea Rivas Stroke Paternal Grandmother Shea Rivas Relation Name Status Comments Father Jesus Rivas Maternal Grandfather [place] nicole Maternal Grandmother Lexi Nicole Mother Dina Rivas Paternal Grandmother Shea Rob Social History Tobacco Use Types Packs/Day Years [...] How often do you attend chur or pentecostalism services? More than 4 times per year 11/19/2022 Do you belong to any clubs o r organizations such as restoration groups, unions, fraternal or athletic groups, or [...] Answer Date Recorded PHQ-2 Score 1 01/16/2023 [facility] of Occupat ional Health - Occupational Stress [...] place to sleep or slept in a senior living (including now)? No 11/19/2022 Depression Answer Date [...] 06/30/2019 7:38 AM CDT Plan of Treatment Upcoming Encounters Date Type Department Care Team (Latest Contact Info) Description 04/01/2024 3:30 PM CDT Clinical Communication Virtual Review in [place], [place] [address] [place] [phone] 04/06/2024 8:30 AM CDT Comprehensive Visit Menopause and [facility]'s [facility] Clinic in [place], [place] [address] [place] [phone] Maegan Eric M.D., M.S. [address] [place] [phone] Health Maintenance Due Date Last Done Comments HIV Screening 1984 Hepatitis C Screening 1984 Lipid (Cholesterol) Screening 1984 Hepatitis B Vaccines (1 of 3 - 19+ 3-dose series) 2003 COVID-19 Vaccine ( - 2022-24 season) 2023 Depression Screening (Annual PHQ-2) 09/09/2023 Influenza Vaccine (#1) 2024 2, 06/30/2019, 06/05/2016, Additional history exists DTaP,Tdap,and Td Vaccines (2 - Td or Tdap) 07/02/2026 07/02/2016 Cervical Cancer Screening 01/08/2027 01/09/2024 Colonoscopy Discontinued 06/30/2019, 06/10, 08/12/2015, Additional history exists Colorectal Cancer Surveillance Discontinued Pneumococcal vaccine (0-64 years) Aged Out 07/02/2023 No longer eligible based on patient's age to complete this topic CT Colonography Discontinued Cologuard Discontinued HPV Vaccines Aged Out No longer eligi ble based on patient's age to complete this topic Medical Devices Implanted Type Area Building Economist Device Identifier Shelf Expiration Date Model / Serial / Lot Seprafilm 3x 5 (Procedure Pack) - Shin [id number] Implanted:Qty: 1 on 09/13/2004 Mesh or Patch [employer] Description:Device Manufactu rer - [employer] Device Status Text - [id number]. Procedures Procedure Name Priority Date/Time Associated Diagnosis Comments COLONOSCOPY Routine 06/30/2019 8:14 AM CDT Diarrhea Persistent Unexplained from Last 3 Months or Most [place] [phone]
--- OUTSIDE RECORDS SUMMARY | 2024-03-31 17:13 | XMS_ITS | Encounter Summary ---
Author Organization [facility] Address [address] [place] [address] Care Team Providers Care Music Producer Name Role Phone Unavailable Primary Care Provider Unavailabl e Reason for Visit * Reason Onset Date Comments Communication 03/25/2024 Encounter Details Date Type Department Care Team (Late st Contact Info) Description 03/25/2024 Clinical Communication Department of Obstetrics and Gynecology in [place], [place] [address] [place] [phone] July Baires P.A.-C. [address] [place] [phone] Communication Social History Tobacco Use Types Packs/Day Years Used Date Smoking Tobacco: Never Smokeless Tobacco: Never Alcohol Use Standard Drinks/Week Comments Yes 3 [...] 11/19/2022 How often do you attend chur ch or jewish services? More than 4 times per year 11/19/2022 Do you belong to any clubs o r organizations such as pentecostalism groups, unions, fraternal or athletic groups, or [...] Answer Date Recorded PHQ-2 Score 1 01/16/2023 [facility] of Occupat ional Health - Occupational Stress [...] place to sleep or slept in a prison (including now)? No 11/19/2022 Depression Answer Date [...] Orientation Straight 06/30/2019 10 :21 AM CDT documented as of this encounter Plan of Treatment Upcoming Encounters Date Type Department Care Team (Latest Contact Info) Description 04/01/2024 3:30 PM CDT Clinical Communication Virtual Review in [place], [place] [address] [place] [address] 04/06/2024 8:30 AM CDT Comprehensive Visit Menopause and Women's Sexual Health Clinic in [place], [place] [address] [place] [address] Maegan Eric M.D., M.S. [address] [place] [address] documented as of this encounter Visit Diagnoses Not on filedocumented in this encounter Additional Health Concerns Assessment Noted Time PHQ-9 Depression Total Score: 1 01/17/20 23 8:41 AM CDT documented as of this encounter
--- OUTSIDE RECORDS SUMMARY | 2024-03-31 17:13 | XMS_ITS | Referral Summary ---
Author Organization [facility] Address [address] [place] [address] Care Team Providers Care Project Economist Name Role Phone Unavailable Primary Care Provider Unavailabl e Source Comments Patient records contain information from all sites at [facility]. For routine questions regarding patient records, call [phone] during business hours, M-F 8:00 AM - 5:00 PM Central Time. Record requests for emergency care only can be directed to [phone] at any time.[facility] Encounters Date Type Department Care Team Description 03/26/2024 Orders Only Department of Obstetrics and Gynecology in [place], [place] [address] [place] [phone] Ivon Barbosa, RYomi Perimenopause (Primary Dx) 03/25/2024 Clinical Communication Department of Obstetrics and Gynecology in [place], [place] [address] [place] [phone] July Baires P.A.-C. Communication from Last 3 Months Allergies Active Allergy Reactions Criticality Noted Date [...] How often do you attend chur or synagogue services? More than 4 times per year 11/19/2022 Do you belong to any clubs o r organizations such as hinduism groups, unions, fraternal or athletic groups, or [...] Answer Date Recorded PHQ-2 Score 1 01/16/2023 [facility] of Occupat ional Health - Occupational Stress [...] place to sleep or slept in a residential (including now)? No 11/19/2022 Depression Answer Date [...] PM CDT Clinical Communication Virtual Review in [place], [place] [address] [place] [phone] 04/06/2024 8:30 AM CDT Comprehensive Visit Menopause and [facility] Sexual [facility] Clinic in [place], [place] [address] [place] [phone] Maegan Eric M.D., M.S. [address] [place] [phone] Medical Devices Implanted Type Area Geothermal Sheet Metal Worker Device Identifier Shelf Expiration Date Model / Serial / Lot Seprafilm 3x 5 (Procedure Pack) - Shin [id number] Implanted:Qty: 1 on 09/13/2004 Mesh or Patch [employer] Description:Device Manufactu rer - [employer] Device Status Text - [id number]. Procedures Procedure Name Priority Date/Time Associated Diagnosis Comments COLONOSCOPY Routine 06/30/2019 8:14 AM CDT Diarrhea Persistent Unexplained from Last 3 Months or Most Recently Relevant to Health Maintenance JENNIE Evans [phone]
--- OUTSIDE RECORDS SUMMARY | 2024-03-31 17:13 | XMS_ITS | Encounter Summary ---
Author Organization [facility] Address [address] [place] [address] Care Team Providers Care Manager Of Housekeeping Name Role Phone Unavailable Primary Care Provider Unavailabl e Reason for Referral * Outpatient (Routine) - Authorized Specialty Diagnoses / Procedures Referred By Harish grimes Referred To Contact Women's Health Diagnoses Perimenopause July Baires P.A.-C. [address] [place] [phone] [facility] Referral ID Status Reason Start Date Expiration Date V isits Requested Visits Authorized [id number] Authorized 03/26/2024 09/25/2025 1 1 Encounter Details Date Type Department Care Team (Late st Contact Info) Description 03/26/2024 Orders Only Department of Obstetrics and Gynecology in [place], [place] [address] [place] [phone] Ivon Barbosa, R.N. [address] [place] [phone] Perimenopause (Primary Dx) Social History Tobacco Use Types Packs/Day Years [...] How often do you attend chur or bahai services? More than 4 times per year 11/19/2022 Do you belong to any clubs o r organizations such as mosque groups, unions, fraternal or athletic groups, or [...] Date Recorded PHQ-2 Score 1 01/16/2023 [facility] of Occupat ional Health - Occupational Stress [...] place to sleep or slept in a intermediate (including now)? No 11/19/2022 Depression Answer Date [...] PM CDT Clinical Communication Virtual Review in [place], [place] [address] [place] [phone] 04/06/2024 8:30 AM CDT Comprehensive Visit Menopause and [facility] Clinic in [place], [place] [address] [place] [phone] Maegan Eric M.D., M.S. [address] [place] [phone] Scheduled Referrals Name Type Priority Associated Diagnoses Orde r Schedule Women's Health - Menopause consult (clinic) Outpatient Referral Routine Perimenopause Expected: 03/26/2024, Expires: 06/26/2025 documented as of this encounter Visit Diagnoses Diagnosis Perimenopause- Primary documented in this encounter Additional Health Concerns Assessment Noted Time PHQ-9 Depression Total Score: 1 01/17/20 8:41 AM CDT documented as of this encounter
--- OUTSIDE RECORDS SUMMARY | 2024-03-31 17:13 | XMS_ITS ---
Author Organization [facility] Address [address] [place] [address] Care Team Providers Care Marketing Compliance Manager Name Role Phone Unavailable Unavailable Unavailable Surgery Details Not on file Complications Check Surgery Details section. Procedure Estimated Blood Loss Check Surgery Details section. Procedure Findings Check Surgery Details section. Procedure Specimens Taken Check Surgery Details section.
--- OUTSIDE RECORDS SUMMARY | 2024-03-31 17:13 | XMS_ITS | Clinical Summary ---
Author Organization [facility] Address [place], [place] [address] Care Team Providers Care Spanish Lecturer Name Role Phone Pcp, No Primary Care Provider Unavailabl e Konstantin Barakat MD Unavailable [phone] Honorio Gomez MD Unavailable [phone] Allergies Active Allergy Reactions Criticality Noted [...] Active Problems Problem Noted Date Diagnosed Date [facility] Encounter for preconception consultation 02/2023 Overview: [facility] PRECONCEPTION CONSULTATION ON 11/15/22 REASON FOR CONSULT: [...] vasovagal syncope REFERRING PHYSICIAN/PHONE/LAST UPDATE: Olman Das OB,[facility], Primary MD approves scheduling of recommended [...] Problem Noted Date Diagnosed Date Resolved Date [facility] Supervision of high-risk 07/26/2022 11/13/2022 Overview: [facility] CONSULTATION ON 07/26/22 REASON FOR CONSULT: U/S CHD TODAY'S APPOINTMENT: MD Consultation & ultrasound exam PRIMARY DIAGNOSIS: 37 y.o. Estimated Date of Delivery: 12/08/22 : CHD-?HRHD Maternal: AMA Vasovagal syncope Asymptomatic PVC's (hasn't set up care with cardiology yet, but plans to) LAST GROWTH: 07/26/22 20w5d 07/25/22 20w4d EFW 424 grams; Percentile: 88 05/08/22 dating u/s REFERRING PHYSICIAN/PHONE/LAST UPDATE[phone] Primary MD approves scheduling of recommended ultrasounds/testing: Not specified SPECIALISTS/CONSULTS: Include: Specialty MD Clinic Name Phone# [place] and ADDED TO PATIENT CARE TEAM Yes CARE COORDINATION: Josiane Ervin, LUIS ANTONIO/Peggy Preciado, RN/Beverly Jackson RN/Mee Ortiz RN/Courtney Taveras, RN [phone] GENETICS: Low rsik PROCEDURES: PERTINENT LABS: Labs reviewed? Yes Normal? Yes PERTINENT MEDS: Preferred delivery location: MD PLAN OF CARE: CHECKLIST FOR SCHEDULING PROCEDURES: For [place]: Induction - Call (automotive tire tester). (UTD patients only, will need to call in the morning before induction, see AVS) Procedure: Induction Hospital: [place] Unit: L&D Date & Time of procedure: [...] doing procedure: Dr. Pittman, Dr. Beavers, Dr. Courtney. Dr. Carnes, Dr. Whitehead, and Corina Dobson APRN are battery charger conveyor line for [facility]. Date scheduled: 08/01/2022 when patient was 21w4d. Scheduling MD & RN: Dr. Crowell/Lashaun Taveras RN ?? Notifications: Hospitalist Delivery-[facility] battery charger conveyor line for this induction (for 3 day window) notified via [employer] inbox? Yes [facility] MD and SATURATION DIVER battery charger conveyor line for this induction (for 3 day window) notified via [employer] inbox? Yes Primary MD notified via [employer] inbox? Not Applicable Primary MD clinic called if not [employer]V [employer]? Yes On [facility] calendar? Yes Genetic Counselor notified via [employer] Inbox- [facility] Genetic Counselor Pool? Yes ?? H&P: H&P [...] out if desired. Delivery notification sent to [place] delivery team; Dr. Crowell; Dr. Marvin; Dr. Fine; Corina Beyer APRN. ? Referring clinic updated on plan by Lashaun Taveras RN. ?? Patient added to Care Coordination List: Yes ?? Patient added to Acuity List in [facility]. ?? Patient added to Tracking Requests for [...] Encounters Date Type Department Care Team Description 03/30/2024 2:15 PM CDT Nurse/Clinic Staff Only [facility] [address] [place] [address] Immunization/Inject ion (ALLERGY INJECTIONS ) 03/30/2024 Travel 03/23/2024 2:00 PM CDT Nurse/Clinic Staff Only [facility] [address] [place] [address] Immunization/Inject ion (ALLERGY INJECTIONS ) 03/23/2024 Travel 02/13/2024 10:45 AM CDT Nurse/Clinic Staff Only [facility] [address] [place] [address] Immunization/Inject ion (Allergy shots) 02/13/2024 Telephone [facility] [address] [place], [place] [id number] Gabriel Leblanc MBBS Refill Request (Allergy serum) 02/13/2024 Travel 01/13/2024 1:30 PM CDT Nurse/Clinic Staff Only [facility] [address] [place] [address] Immunization/Inject ion (ALLERGY INJECTIONS ) 01/13/2024 Travel 01/10/2024 Lab Requisition [facility] [phone] Edith Dawson MD from Last 3 Months Immunizations Name Administration [...] Outcome GA Total Labor Labor/2nd/3rd Weight Sex Type Anes PTL Lupe A1 A5 Name Clin 2016 Term 41w 0d M Vag Livin g Dillio n Complications: Hem orrhage Comments:PP hemmorhage 2018 Term 40w 0d 3h 54m 2h 25m/1h 25m/0h 04m 3.74 kg (8 lb 3.8 oz) M Vag-S pont Epidur al N Livin g 8 9 SABRINA, B1 EUGENE A Sabrina Osbor n DO Complications:None [facility] 2021 22w 0d F Vag Demis e 0 0 Kaela Complications:Stillbirth Delivery Location:[facility] Last Filed Vital Signs Vital Sign Reading Time Taken Comments Blood Pressure 104/69 10/28/2023 2:32 PM SENIOR COMMUNICATIONS ENGINEER Pulse 63 10/28/2023 2:32 PM SENIOR COMMUNICATIONS ENGINEER Temperature 36.6 ??C (97.9 ??F) 08/05/2022 4:11 AM CS T Respiratory Rate 14 07/18/2023 3:51 PM SENIOR COMMUNICATIONS ENGINEER Oxygen Saturation 100% 10/28/2023 2:32 PM SENIOR COMMUNICATIONS ENGINEER Inhaled Oxygen Concentration - - Weight 82.6 kg (182 lb) 08/04/2022 2:45 AM SENIOR COMMUNICATIONS ENGINEER Height 162.6 cm (5' 4) 08/04/2022 2:45 AM SENIOR COMMUNICATIONS ENGINEER Body Mass Index 31.24 08/04/2022 2:45 AM SENIOR COMMUNICATIONS ENGINEER Plan of Treatment Health Maintenance Due Date Last Done Comments Tdap 1995 Depression screening for age 12+ 1996 HIV for age 15-65 1999 BMI (ht and wt on same day) for age 18+ 2002 Hepatitis C screening for ag e 18-79 2002 Tetanus booster 2004 COVID-19 vaccine series (1 - 2023- season) 2023 Influenza for age 9-49 05/10/2024 Pap test for age 21-65 01/08/2027 , 01/09/2024 Pneumococcal series for age 6-64 Aged Out 07/02/2023 No longer eligible b ased on patient's age to complete this topic Procedures Procedure Name Priority Date/Time Associated Diagnosis Comments LAB TRACKING EVENT Routine 01/09/2024 9: 30 AM CDT ROR ENGINEER THIN PREP PAP SCREEN IMAGED Routine 01/09/2024 9:30 AM CDT HPV THIN PREP Routine 01/09/2024 9:30 AM CDT from Last 3 Months Results * LAB TRACKING EVENT (01/09/2024 9:30 AM CDT) Other (Other) Client Collect / Unknown 01/09/2024 9:30 AM CDT 01/10/2024 3:33 PM CDT Edith Dawson MD LAB BILL O NLY [facility] [address] [place] [address], * ROR ENGINEER THIN PREP PAP SCREEN IMAGED (01/09/2024 9:30 AM CDT) Case Report Gynecologic Cytology Report ? Case: [id number] ? Authorizing Provider: ??Edith Daswon ??Collected: ? 01/09/2024 0930 ? MD Justin ? Ordering Location: ? [facility] ?Received: ?01/13/2024 1015 ? First Screen: ?Serge Kim ? Specimen: ?ROR ENGINEER ThinPrep Vial Screening, Cervical ? 01/23/2024 2:04 PM CDT [facility] INTERPRETATION/ RESULT NEGATIVE FOR INTRAEPITHELIAL LESION OR MALIGNANCY (NIL) (none) 01/23/2024 2:04 PM CDT [facility] [employer] [facility] IMEN ADEQUACY Satisfactory for evaluation Endocervical component present 01/23/2024 2:04 PM CDT [facility]- EN[facility]AL LAB[facility]ATORY HPV REQUEST HPV and PAP 01/23/2024 2:04 PM CDT [facility]AL LAB[facility]ORY Date of LMP 01/09/2024 01/23/2024 2:04 PM CDT [facility] [employer] LABORATORY-C ENTRAL LABORATORY Last Pap Date 01/23/2024 2:04 PM CDT [facility] [employer] [facility] Comment:unknown possibly Abnormal Pap or Bulan Bx in last 5 years No 01/23/2024 2:04 PM CDT [facility] [employer] LABORATORY- ENTRAL LABORATORY Bulan Bx Done Today No 01/23/2024 2:04 PM CDT [facility] [employer] [facility] Additional Information 01/23/2024 2:04 PM CDT [facility] Comment: Interpreted at [facility] - [address] [facility] [address], [place] [address] Automated Review Successful 01/23/2024 2:04 PM CDT [facility] Comment:Specimen processed s uccessfully by automated correctional corporal device, ThinPrep Imaging System, [employer] ANCILLARY TESTING ROR ENGINEER HPV Ordered, Please see separate report 01/23/2024 2:04 PM CDT [facility] Note The pap test is a screening technique, not a diagnostic procedure. It is used primarily to screen for squamous cancers and precursor lesions. Published studies have shown that it is subject to both false negative and false positive results. The pap test should not be used as the sole means to diagnose or exclude pre-malignant and malignant lesions. 01/23/2024 2:04 PM CDT [facility] Other (Cervical) 01/09/2024 9:30 AM CDT 01/13/2024 10:15 AM CDT Edith Dawson MD PATHOLOGY/ CYTOLOGY [facility] [address] [place] [address], * HPV HIGH RISK (01/09/2024 9:30 AM CDT) TYPE 16 Negative Negative 01/14/2024 2:05 PM CDT [facility] TYPE 18 Negative Negative 01/14/2024 2:05 PM CDT [facility] OTHER HIGH RISK TYPES Negative Negative 01/14/2024 2:05 PM CDT [facility] Other (Cervical) 01/09/2024 9:30 AM CDT 01/13/2024 10:15 AM CDT Narrative [facility] - 01/14/2024 2:05 PM CDT HPV types 16, 18, 31, 33, 35, 39, 45, 51, 52, 56, 58, 59, 66 and 68 DNA were undetectable or below the pre-set threshold. Methodology: Kelley Corey 4800 HPV Test Edith Dawson MD MICROBIOLO GY [facility] [address], [place] [address], [place] from Last 3 Months Advance Directives * Full Code (Latest Code Status on File) Date Activated Date Inactivated Comments 08/03/2022 5:56 PM 08/05/2022 12:19 PM Question Answer Comments Code Status Discussion: Reviewed Preferences Care Teams Spanish Lecturer Relationship Specialty Start Date End Date Pcp, No . PCP - General 01/07/12 Konstantin Barakat MD [address] [place] [address] Allergy and Immunology 06/20/22 Honorio Gomez MD [address] [place] [address] Referring Provider Obstetrics and Gynecology 07/26/22
--- NOTE | 2024-03-31 17:20 | CRLHL7_ITS ---
For Patients: As a result of the Century Cures Act, medical imaging exams and procedure reports are released immediately into your electronic medical record. You may view this report before your referring provider. If you have questions, please contact your health care provider. BILATERAL SCREENING MAMMOGRAM WITH COMPUTER-AIDED DETECTION AND TOMOSYNTHESIS TECHNIQUE: CC and MLO views were obtained. These mammographic images have been obtained using full-field digital technique. These mammographic images were interpreted with the benefit of computer-aided detection. Breast tomosynthesis was used in this interpretation. COMPARISON FILM: None. This is a baseline study. FINDINGS: The breasts are heterogeneously dense, which may obscure small masses. IMPRESSION: There is no radiographic evidence for malignancy. ASSESSMENT: BI-RADS Category 1: Negative RECOMMENDATION: Routine screening mammogram in 1 year. A lay language report of this examination will be provided to the patient. BRET BELTRÁN M.D. Diagnostic Radiologist [email or web address] Transcribed: 2:[address]/Dictated by: Bret Beltrán MD @ 04/01/2024 11:09:00 AM (Electronically Signed)
== END 2024-03-31 17:12 | disposition home or self-care (01) ==
PROVIDERS: Visit Provider Obstetrics & Gynecology
DX: Z12.31 Encounter for screening mammogram for malignant neoplasm of breast (principal); R92.2 Inconclusive mammogram
CPT/HCPCS: 77063; 77067

== ENCOUNTER 2024-10-26 14:05 | Outpatient (CLI) | payer OTHER, SELFPAY | END 2024-10-26 14:06 | disposition home or self-care (01) | PROVIDERS: PCP Physician Assistant Medical; Visit Provider Physician Assistant Medical | DX: Z13.228 Encounter for screening for other metabolic disorders (principal); Z13.220 Encounter for screening for lipoid disorders; Z13.29 Encounter for screening for other suspected endocrine disorder | CPT/HCPCS: 80053; 80061; 84443 ==

== ENCOUNTER 2024-11-20 12:54 | Outpatient (CLI) | payer OTHER, SELFPAY | END 2024-11-20 12:55 | disposition home or self-care (01) | PROVIDERS: PCP Physician Assistant Medical; Visit Provider Physician Assistant Medical | DX: R07.9 Chest pain, unspecified (principal) | CPT/HCPCS: 93306 ==

== ENCOUNTER 2025-06-01 18:08 | Outpatient (CLI) | payer OTHER, SELFPAY ==
--- NOTE | 2025-06-01 18:20 | CRLHL7_ITS ---
For Patients: As a result of the Century Cures Act, medical imaging exams and procedure reports are released immediately into your electronic medical record. You may view this report before your referring provider. If you have questions, please contact your health care provider. INDICATION: BILATERAL SCREENING MAMMOGRAM, ASYMPTOMATIC 40 Y/O F COMPARISON: Baseline TECHNIQUE: Digital mammogram in CC and MLO projections including computer-aided detection (CAD) and tomosynthesis. BREAST COMPOSITION: There are scattered areas of fibroglandular density. FINDINGS: No suspicious findings. ASSESSMENT: BI-RADS 1 Negative RECOMMENDATION: Annual screening mammogram. A lay language report of this examination will be provided to the patient. Dictated by: Cleo Chavez MD @ 06/02/2025 13:24:07 (Electronically Signed)
== END 2025-06-01 18:09 | disposition home or self-care (01) ==
LOC: MAMMO 18:10
PROVIDERS: PCP Physician Assistant Medical; Visit Provider Obstetrics & Gynecology
DX: Z12.31 Encounter for screening mammogram for malignant neoplasm of breast (principal)
CPT/HCPCS: 77063; 77067